=== PATIENT | male | born 1990 | race Caucasian/White ===

== ENCOUNTER 2021-01-19 21:50 | Emergency (ER) | payer OTHER, SELFPAY ==
[2021-01-19 21:57] VITALS: BP 123/33; PULSE 87; RESP 18; TEMP 36.5; O2SAT 98; BMI 25.7
--- NOTE | 2021-01-19 22:08 | CT_ITS ---
PROCEDURE: CT HEAD/BRAIN WO CON CLINICAL INDICATION: Softball to left forehead Head injury with headache/pain, contusion, abrasion or hematoma COMPARISON: No exams were available for comparison TECHNIQUE: Axial images obtained. All CT scans at the facility use one or more dose reduction, viz: automated exposure control, ma/kV adjustment per patient size (including targeted exams where dose is matched to indication, i.e. head), or iterative reconstruction technique. FINDINGS: No midline shift, mass effect, intracranial hemorrhage, hydrocephalus, or extra-axial fluid collection is evident. The calvarium has an unremarkable appearance. Prominent soft tissue swelling is present in the left frontal and temporal region of the scalp consistent with hematoma. This involves the supraorbital and lateral orbital region. No underlying fracture apparent. No sinus air-fluid level. IMPRESSION: Left frontal temporal scalp hematoma otherwise negative Dictated by: Radhames De León MD 01/20/2021 05:51 Radhames De León MD in [facility] 01/20/2021 05:51
--- NOTE | 2021-01-19 22:08 | CT_ITS ---
PROCEDURE: CT CERVICAL SPINE WO CON CLINICAL INDICATION: Softball to left forehead Neck injury with pain, contusion/abrasion or hematoma, cervical sprain/strain the COMPARISON: No exams were available for comparison TECHNIQUE: Axial images obtained with sagittal and coronal reformats. All CT scans at the facility use one or more dose reduction, viz: automated exposure control, ma/kV adjustment per patient size (including targeted exams where dose is matched to indication, i.e. head), or iterative reconstruction technique. Axial spiral CT scanning performed of the cervical spine beginning at the base of the skull and continuing to the upper T-spine. 3-D multiplanar reconstruction with 3-D manipulation of volumetric data set in image rendering was completed by the radiologist and/or technologist with the supervision of the radiologist on independent workstation. FINDINGS: No fracture nor subluxation is evident. Normal prevertebral soft tissues. Facets, neural foramen and vertebral bodies intact and unremarkable. Normal C1/C2 relationships. Apices of lungs are clear with no acute findings. There are few scattered small lymph nodes in the neck nonspecific IMPRESSION: Cervical spine intact with no fracture nor subluxation. Dictated by: Radhames De León MD 01/20/2021 05:53 Radhames De León MD in [facility] 01/20/2021 05:53
--- NOTE | 2021-01-19 22:08 | CT_ITS ---
PROCEDURE: CT FACIAL BONES WO CON CLINICAL HISTORY: Softball to left forehead Laceration to the left frontal area, hematoma COMPARISON: No exams were available for comparison TECHNIQUE: Axial images obtained with sagittal and coronal reformats. All CT scans at the facility use one or more dose reduction, viz: automated exposure control, ma/kV adjustment per patient size (including targeted exams where dose is matched to indication, i.e. head), or iterative reconstruction technique. FINDINGS: Bones: Unremarkable. No fracture, lytic, or blastic changes evident. Extracranial soft tissues: Large hematoma is present in the left frontal region at supraorbital area and lateral orbital area into the left temporal region. No acute fractures evident. No radiopaque foreign body. Sinuses: Unremarkable. No air-fluid levels or significant mucosal thickening. Orbits: Unremarkable. Other: No other pertinent findings. IMPRESSION: Large left frontal/periorbital hematoma No acute fracture Dictated by: Radhames De León MD 01/20/2021 05:56 Radhames De León MD in [facility] 01/20/2021 05:56
--- NOTE | 2021-01-19 22:14 | [facility].EDTRAUMA ---
ED Disposition Clinical Impression: Concussion without loss of consciousness Qualifiers: Encounter type: initial encounter Qualified Code(s): S06.0X0A - Concussion without loss of consciousness, initial encounter Traumatic hematoma of face Qualifiers: Encounter type: initial encounter Qualified Code(s): S00.83XA - Contusion of other part of head, initial encounter Disposition: Home, Self-Care Condition on Discharge: Good Instructions: DI for Concussion Additional Instructions: ice and see pcp for follow up Referrals: PCP,No [Primary Care Provider] - - Critical Care Critical Care Time: No Attestation: On 01/19/21, the high probability of a clinically significant, sudden or life threatening deterioration of the following system(s) required my full and direct attention, intervention and personal management. The time I documented below is in addition to time spent performing reported procedures but includes the following listed in this critical care notation. Medical Decision Making - Medical Records Medical records reviewed: Yes: I reviewed the patient's medical records. - Master Inquiry Pt receiving controlled substance: No Vital Signs: 01/19/21 21:57 01/19/21 22:30 Temperature 97.7 F Temperature Source Oral Pulse Rate 91 H Pulse Rate [Right] 87 Respiratory Rate 18 Blood Pressure 126/69 Blood Pressure [Right Arm] 123/33 L Blood Pressure Mean 93 Blood Pressure Mean [Right Arm] 63 Blood Pressure Source [Right Arm] Automatic Cuff Blood Pressure Position [Right Arm] Sitting 02 Sat by Pulse Oximetry 98 Oxygen Delivery Method Room Air - Lab Data Lab results reviewed: Yes: I reviewed the patient's lab results. Orders (Tests/Meds): ED MEDICATIONS Discontinued Medications Generic Name Dose Route Start Last Admin Trade Name Freq PRN Reason Stop Dose Admin Tetanus/Diphtheria Toxoids 0.5 ml 01/19/21 23:23 Tetanus-Diphth Toxoid, Adult 0.5ml Syr IM 01/19/21 23:24 .ONCE ONE ORDERS Category Date Time Status CT cervical spine wo con Stat Cat Scan 01/19/21 22:[address] facial bones wo con Stat Cat Scan 01/19/21 22:[address] head/brain wo con Stat Cat Scan 01/19/21 22:08 Taken - CT Data CT Scan: Head, C-Spine, Other (facial) Time Received: 23:[address] Reviewed: Yes: I have viewed the radiologist's interpretation Preliminary Findings: No Fracture Seen Medical Decision Narrative: no loc and xrays ok will use ice and see pcp for follow up Trauma Alert The Trauma Alert Section documentation for [id number] Zachary Chu was populated with data that defaulted in from the quantitative consultant in the Trauma Alert Triage Assessment on f_Reg Service Date] to provide within this report, the status of the patient on arrival to the ED during the Trauma Alert. - Arrival Mode of Arrival: Ambulatory Description of Symptoms (Recalled from ER Triage Doc. by RN): Pt was hit in the left forehead with a softball [employer] and has a large Hematoma to area, denies LOC, no visual disturbance. PERRL 3mm - Pre-Hospital Care Pre-Hospital Care Given: No - Height/Weight/BMI Height: 6 ft 1 in Weight: 195 lb Weight Measurement Method: Stated by Patient Body Mass Index: 25.7 - Immunization Status Hx Immunizations Up to Date: Yes Trauma HPI - General Chief Complaint: Head Injury Stated Complaint: [id number] hit in forehead by softball Time Seen by Provider: 01/19/21 22:14 Mode of Arrival: Ambulatory Source of Information: Patient, Medical Record Limitations: No Limitations Description of Symptoms (Recalled from ER Triage Doc. by RN): Pt was hit in the left forehead with a softball [employer] and has a large Hematoma to area, denies LOC, no visual disturbance. PERRL 3mm - History of Present Illness HPI narrative: hit with thrown softball w/o loc with lt frontal hematoma and abrasion complaint: injury Onset (ago): hour(s) Loss of Consciousness: no Location: head, face Se
[2021-01-19 22:30] VITALS: BP 126/69; PULSE 91
[2021-01-19 23:39] VITALS: BP 137/75; PULSE 84; RESP 16; TEMP 36.5; O2SAT 99
== END 2021-01-19 23:41 | disposition home or self-care (01) ==
PROVIDERS: Emergency Provider Emergency Medicine
DX: S06.0X0A Concussion without loss of consciousness, initial encounter (principal); S00.83XA Contusion of other part of head, initial encounter; W21.07XA Struck by softball, initial encounter; Y93.64 Activity, baseball; Y92.328 Other athletic field as the place of occurrence of the external cause
CPT/HCPCS: 70450; 70486; 72125; 90471; 90714; 99282